=== PATIENT | male | born 1955 | race Caucasian/White ===

== ENCOUNTER 2025-01-22 09:07 | Day surgery (SDC) | payer MEDICARE ==
[2025-01-22] MEDS ORDERED: propofoL IV ONE (12:23)
== END 2025-01-22 10:50 | disposition home or self-care (01) ==
LOC: SDC-PAIN 09:07
PROVIDERS: ATTEND Psychiatry & Neurology Pain Medicine
DX: Z53.8 Procedure and treatment not carried out for other reasons (principal); Z79.01 Long term (current) use of anticoagulants
CPT/HCPCS: J2704

== ENCOUNTER 2025-02-27 08:40 | Day surgery (SDC) | payer MEDICARE ==
[2025-02-27] MEDS ORDERED: LIDOCAINE HCL 1% AMPUL 5 ML IJ ONE (08:41)
[2025-02-27] MEDS ORDERED: Sodium Chloride 0.9(Preservative Free) 10 ML IJ ONE (08:41)
[2025-02-27] MEDS ORDERED: dexAMETHasone sodium phosphate IJ ONE (08:41)
[2025-02-27] MEDS ORDERED: propofoL IV ONE (10:57)
[2025-02-27] MEDS ORDERED: Xylocaine-Mpf 2% 5 Ml Vial ONE (10:58)
[2025-02-27] MEDS ORDERED: MORPHINE SULFATE 2 MG INJ ONE (11:28)
--- NOTE | 2025-02-27 19:25 | XRAY ---
One minute of fluoroscopy was used in surgery for a left L4-S1 transforaminal BELGICA and piriformis injection.
--- NOTE | 2025-02-27 19:39 | XRAY ---
Indication: Left L4-S1 transforaminal BELGICA and left piriformis injection. Intraoperative fluoroscopy provided for 1 minute. 5 digital spot image submitted for interpretation demonstrates posterior needle tips projecting over expected left L4 and L5 nerve roots. Additional posterior needle tip projects over the left piriformis. Small amount of contrast injected for all needle tip placement. Correlate with intraoperative findings/report.
== END 2025-02-27 11:50 | disposition home or self-care (01) ==
LOC: SDC-PAIN 08:40
PROVIDERS: ATTEND Psychiatry & Neurology Pain Medicine
DX: M54.16 Radiculopathy, lumbar region (principal); E11.9 Type 2 diabetes mellitus without complications; M79.18 Myalgia, other site
CPT/HCPCS: 20552; 64483; 64484; 72100; 77002; 82947; J1100; J2270; J2704; Q9966